=== PATIENT | female | born 1945 | race African-American/Black ===

== ENCOUNTER 2018-05-24 19:55 | Inpatient (IN) | payer MEDICARE, MEDICAID ==
[~2018-05-24] VITALS: Ht 162.6 cm; Wt 63.5 kg
[~2018-05-24 19:55] MED LIST: AMLO5TAB4 PO; GLYB5TAB4 PO; HYDR-1348
[2018-05-24] MEDS ORDERED: ONDANSETRON HCL 4MG/2ML INJ IV STA (20:30)
[2018-05-24] MEDS ORDERED: MORPHINE SULFATE 4 MG/ML CPJ (NOT FOR IM USE) IV STA (20:30)
[2018-05-24] MEDS ORDERED: SODIUM CHLORIDE 0.9% 1,000 ML IV ONE (20:30)
[2018-05-24] MEDS ORDERED: KETOROLAC 30MG/ML VIAL IV STA (20:30)
[2018-05-24 22:15] LABS: EOSINOPHILS % 0.6 % (0.0-5.0); HEMATOCRIT. 35.1 % (36.0-48.0); HEMOGLOBIN. 11.9 g/dL (12.0-16.0); LYMPHOCYTES % 39.4 % (20.0-50.0); MEAN CORPUSCULAR HEMOGLOBIN 30.6 pg (28.0-32.0); MEAN CORPUSCULAR VOLUME 90.4 fL (81.0-99.0); MEAN PLATELET VOLUME 8.4 fl (7.4-10.4); MONOCYTES % 5.6 % (2.0-8.0); NEUTROPHILS % 53.4 % (40.0-76.0); PLATELET 242 x1000/uL (130-400); RED BLOOD CELL COUNT 3.88 mill/uL (4.2-5.4)
[2018-05-24 22:21] LABS: CLARITY URINE CLEAR (CLEAR); COLOR URINE YELLOW (YELLOW); KETONES URINE NEGATIVE (NEGATIVE); LEUKOCYTE ESTERASE URINE NEGATIVE (NEGATIVE); NITRITE URINE NEGATIVE (NEGATIVE); OCCULT BLOOD URINE 2+ (NEGATIVE); PROTEIN URINE TRACE (NEGATIVE); SPECIFIC GRAVITY URINE 1.008 (1.005-1.030); UROBILINOGEN URINE 0.2 E.U./dL (0.2-1.0)
[2018-05-24 22:22] LABS: CHLORIDE 106 mEq/L (98-107)
[2018-05-24 22:25] LABS: ETHANOL BLOOD < 10 mg/dL
[2018-05-24 22:26] LABS: PARTIAL THROMBOPLASTIN TIME 31.5 sec (23.4-31.0); PROTHROMBIN TIME 10.3 sec (9.1-11.1)
[2018-05-24 22:30] LABS: *AMPHETAMINES SCREEN URINE NEGATIVE (NEGATIVE); *BARBITURATES SCREEN URINE NEGATIVE (NEGATIVE)
[2018-05-24 22:31] LABS: *BENZODIAZEPINES SCREEN URINE NEGATIVE (NEGATIVE); *COCAINE SCREEN URINE NEGATIVE (NEGATIVE); CANNABINOID URINE SCREEN NEGATIVE (NEGATIVE); METHADONE URINE SCREEN NEGATIVE (NEGATIVE); OPIATES URINE SCREEN PRESUMTIVE POSITIVE (NEGATIVE); PHENCYCLIDINE URINE SCREEN NEGATIVE (NEGATIVE)
[2018-05-24] MEDS ORDERED: GUAIFENESIN 200MG/10ML SUGAR FREE UDC PO PRN (23:45)
[2018-05-24] MEDS ORDERED: DOCUSATE SODIUM 100MG CAPSULE PO PRN (23:45)
[2018-05-24] MEDS ORDERED: MAGNESIUM/ALUMINUM HYDROXIDE/SIMETHICONE 30ML UDC PO PRN (23:45)
[2018-05-24] MEDS ORDERED: ACETAMINOPHEN 325MG TABLET PO PRN (23:45)
[2018-05-24] MEDS ORDERED: CLONIDINE 0.1MG TABLET PO PRN (23:45)
[2018-05-24] MEDS ORDERED: ONDANSETRON HCL 4MG/2ML INJ IV PRN (23:45)
[2018-05-24 23:56] VITALS: BP 144/83
[2018-05-25] VITALS: BP 144/83
[2018-05-25] MEDS: DEXT 5%/0.45% NACL 1000ML 1,000 ML IV SCH ×3 (01:06→14:19)
[2018-05-25] MEDS: HYDROCODONE/ACETAMINOPHEN 5/325MG TABLET PO PRN ×4 (01:07→16:27)
[2018-05-25] MEDS ORDERED: GABA-290 PO (01:41)
[2018-05-25] MEDS ORDERED: ATOR10TA69 PO (01:41)
[2018-05-25] MEDS ORDERED: HYDR12.529 PO (01:41)
[2018-05-25 04:00] VITALS: BP 139/67
[2018-05-25 07:46] LABS: CHLORIDE 109 mEq/L (98-107)
[2018-05-25 08:00] VITALS: BP 163/83
[2018-05-25 08:27] LABS: BASOPHILS % 0.6 % (0.0-2.0); EOSINOPHILS % 1.4 % (0.0-5.0); HEMATOCRIT. 31.3 % (36.0-48.0); HEMOGLOBIN. 10.5 g/dL (12.0-16.0); LYMPHOCYTES % 55.6 % (20.0-50.0); MEAN CORPUSCULAR HEMOGLOBIN 30.7 pg (28.0-32.0); MEAN CORPUSCULAR VOLUME 91.1 fL (81.0-99.0); MEAN PLATELET VOLUME 8.8 fl (7.4-10.4); MONOCYTES % 6.6 % (2.0-8.0); NEUTROPHILS % 35.8 % (40.0-76.0); PLATELET 219 x1000/uL (130-400); RED BLOOD CELL COUNT 3.44 mill/uL (4.2-5.4); RED CELL DISTRIBUTION WIDTH 14.7 % (11.6-14.6)
[2018-05-25] MEDS ORDERED: METOPROLOL TARTRATE 25MG TABLET PO SCH (09:00)
[2018-05-25] MEDS ORDERED: ENOXAPARIN 40MG/0.4ML SYR SUBCUT SCH (09:00)
[2018-05-25 12:00] VITALS: BP 158/76
[2018-05-25] MEDS ORDERED: DEXTROSE 50% WATER 50ML SYRINGE IV PRN (14:15)
[2018-05-25 16:00] VITALS: BP 170/70
[2018-05-25] MEDS ORDERED: BLOOD SUGAR DIAGNOSTIC STRIP TEST SCH (17:40)
[2018-05-25] MEDS ORDERED: GLYBURIDE 5MG TABLET PO SCH (17:40)
[2018-05-25 17:57] VITALS: BP 163/77
[2018-05-25] MEDS ORDERED: INSULIN LISPRO 100 UNITS/ML SUBCUT SCH (18:10)
== END 2018-05-25 18:33 | disposition home or self-care (01) | DRG 422 ==
LOC: ER 20:19 → 7WST 21:34 → EDBEDREQ 21:56 → EDBEDREQTM 21:56 → ENRESERV 22:31 → SUPCPDRO 23:40
PROVIDERS: ADMIT Hospitalist; ATTEND Hospitalist
DX: E86.0 Dehydration (principal); E11.9 Type 2 diabetes mellitus without complications; M06.9 Rheumatoid arthritis, unspecified; I10 Essential (primary) hypertension
CPT/HCPCS: 36415; 71045; 80305; 80320; 82962; 83605; 83880; 84484; 85651; 87804; 93005; 93970; 96361; 96374; 96375; 99285; J1650; J1885; J2270; J2405; J7030; G0480

== ENCOUNTER 2020-05-05 05:52 | Inpatient (IN) | payer MEDICARE, MEDICAID ==
[~2020-05-05] VITALS: Ht 162.6 cm; Wt 60.3 kg
[~2020-05-05 05:52] MED LIST changes: +ATOR10TA69 PO; +GABA-290 PO; +HYDR12.529 PO
[2020-05-05] MEDS ORDERED: SODIUM CHLORIDE 0.9% 1000ML BAG (SEPSIS BOLUS) IV ONE (06:15)
[2020-05-05 06:52] LABS: BASOPHILS % 1.1 % (0.0-2.0); EOSINOPHILS % 0.1 % (0.0-5.0); HEMOGLOBIN. 14.7 g/dL (12.0-16.0); LYMPHOCYTES % 28.8 % (20.0-50.0); MEAN CORPUSCULAR HEMOGLOBIN 31.5 pg (28.0-32.0); MEAN CORPUSCULAR VOLUME 91.9 fL (81.0-99.0); MEAN PLATELET VOLUME 8.5 fl (7.4-10.4); PLATELET 119 x1000/uL (130-400); RED BLOOD CELL COUNT 4.68 mill/uL (4.2-5.4); RED CELL DISTRIBUTION WIDTH 15.2 % (11.6-14.6)
[2020-05-05 06:53] LABS: CLARITY URINE CLOUDY (CLEAR); COLOR URINE DARK YELLOW (YELLOW); KETONES URINE TRACE (NEGATIVE); LEUKOCYTE ESTERASE URINE NEGATIVE (NEGATIVE); NITRITE URINE NEGATIVE (NEGATIVE); OCCULT BLOOD URINE 3+ (NEGATIVE); PH URINE 5.5 (4.5-8.0); PROTEIN URINE 4+ (NEGATIVE); SPECIFIC GRAVITY URINE 1.024 (1.005-1.030)
[2020-05-05 06:56] LABS: CHLORIDE 104 mEq/L (98-107)
[2020-05-05 06:57] LABS: INR 1.2; PROTHROMBIN TIME 12.3 sec (9.6-11.0)
[2020-05-05] MEDS ORDERED: ASPIRIN 325MG EC TABLET PO ONE (08:15)
[2020-05-05] MEDS: INSULIN LISPRO 100 UNITS/ML SUBCUT SCH ×4 (08:20→21:00)
[2020-05-05] MEDS ORDERED: DEXTROSE 50% WATER 50ML SYRINGE IV PRN ×2 (08:30)
[2020-05-05] MEDS ORDERED: ONDANSETRON HCL 4MG/2ML INJ IV PRN (08:30)
[2020-05-05] MEDS ORDERED: MAGNESIUM/ALUMINUM HYDROXIDE/SIMETHICONE 30ML UDC PO PRN (08:30)
[2020-05-05] MEDS ORDERED: DOCUSATE SODIUM 100MG CAPSULE PO PRN (08:30)
[2020-05-05] MEDS: ENOXAPARIN 40MG/0.4ML SYR SUBCUT SCH (09:00)
[2020-05-05] MEDS: OMEPRAZOLE 20MG CAPSULE EXTENDED RELEASE PO SCH (09:00)
[2020-05-05] MEDS: BLOOD SUGAR DIAGNOSTIC STRIP TEST SCH ×4 (09:27→21:17)
[2020-05-05] MEDS: CLONIDINE 0.1MG TABLET PO PRN (10:07)
[2020-05-05] MEDS: HYDROCODONE/ACETAMINOPHEN 5/325MG TABLET PO PRN ×3 (10:08→20:13)
[2020-05-05 20:52] LABS: *AMPHETAMINES SCREEN URINE NEGATIVE (NEGATIVE); *BARBITURATES SCREEN URINE NEGATIVE (NEGATIVE); *BENZODIAZEPINES SCREEN URINE NEGATIVE (NEGATIVE); *COCAINE SCREEN URINE NEGATIVE (NEGATIVE)
[2020-05-05 20:53] LABS: CANNABINOID URINE SCREEN NEGATIVE (NEGATIVE); METHADONE URINE SCREEN NEGATIVE (NEGATIVE); OPIATES URINE SCREEN PRESUMTIVE POSITIVE (NEGATIVE); PHENCYCLIDINE URINE SCREEN NEGATIVE (NEGATIVE)
[2020-05-05 22:10] VITALS: BP 159/83
[2020-05-05 23:21] VITALS: BP 159/83
[2020-05-06] VITALS: BP_SYST 141; BP_SYST 187; BP_DIAS 102; BP_DIAS 99
[2020-05-06] MEDS: CLONIDINE 0.1MG TABLET PO PRN ×2 (00:07→17:02)
[2020-05-06] MEDS: HYDROCODONE/ACETAMINOPHEN 5/325MG TABLET PO PRN ×2 (00:08→04:48)
[2020-05-06 04:00] VITALS: BP 162/89
[2020-05-06 04:42] LABS: EOSINOPHILS % 0.3 % (0.0-5.0); HEMATOCRIT. 39.9 % (36.0-48.0); HEMOGLOBIN. 13.7 g/dL (12.0-16.0); LYMPHOCYTES % 38.7 % (20.0-50.0); MEAN CORPUSCULAR HEMOGLOBIN 31.3 pg (28.0-32.0); MEAN PLATELET VOLUME 8.5 fl (7.4-10.4); MONOCYTES % 11.7 % (2.0-8.0); NEUTROPHILS % 48.3 % (40.0-76.0); PLATELET 115 x1000/uL (130-400); RED BLOOD CELL COUNT 4.38 mill/uL (4.2-5.4); RED CELL DISTRIBUTION WIDTH 15.2 % (11.6-14.6)
[2020-05-06 04:53] LABS: CHLORIDE 109 mEq/L (98-107)
[2020-05-06 05:00] LABS: PHOSPHORUS 2.7 mg/dL (2.5-4.9)
[2020-05-06 05:01] LABS: LDL CHOLESTEROL 150 mg/dL (5-100)
[2020-05-06 05:02] LABS: HDL CHOLESTEROL 46 mg/dL (40-59)
[2020-05-06] MEDS: OMEPRAZOLE 20MG CAPSULE EXTENDED RELEASE PO SCH (05:57)
[2020-05-06] MEDS: BLOOD SUGAR DIAGNOSTIC STRIP TEST SCH ×6 (05:57→20:38)
[2020-05-06] MEDS: INSULIN LISPRO 100 UNITS/ML SUBCUT SCH ×4 (05:58→20:38)
[2020-05-06] MEDS ORDERED: APIX5TAB PO (07:09)
[2020-05-06] MEDS ORDERED: GABA-290 PO (07:09)
[2020-05-06] MEDS ORDERED: LACT10SO3 PO (07:09)
[2020-05-06] MEDS ORDERED: AMLO10TA80 PO (07:09)
[2020-05-06] MEDS ORDERED: LOSA25TA26 PO (07:09)
[2020-05-06] MEDS ORDERED: LENV8CAP PO (07:09)
[2020-05-06] MEDS ORDERED: OXYC10TA48 PO (07:09)
[2020-05-06] MEDS ORDERED: FAMO40TA7 PO (07:09)
[2020-05-06] MEDS ORDERED: ATEN50TA PO (07:09)
[2020-05-06] MEDS ORDERED: METF-414 PO (07:09)
[2020-05-06 08:00] VITALS: BP 140/102
[2020-05-06] MEDS ORDERED: OXYCODONE HCL 10 MG PO SCH (08:30)
[2020-05-06] MEDS: ENOXAPARIN 40MG/0.4ML SYR SUBCUT SCH (09:18)
[2020-05-06] MEDS: OXYCODONE HCL 5MG TABLET PO SCH ×4 (09:19→20:38)
[2020-05-06 12:00] VITALS: BP 122/89
[2020-05-06 16:00] VITALS: BP 164/98
[2020-05-06] MEDS: DOCUSATE SODIUM 100MG CAPSULE PO SCH (17:02)
[2020-05-06] MEDS ORDERED: IOHEXOL-300 100 ML BOTTLE ONE (18:15)
[2020-05-06] MEDS: AMLODIPINE 5MG TABLET PO SCH (20:37)
[2020-05-07] MEDS: CLONIDINE 0.1MG TABLET PO PRN (00:32)
[2020-05-07] MEDS: OMEPRAZOLE 20MG CAPSULE EXTENDED RELEASE PO SCH (06:02)
[2020-05-07] MEDS: INSULIN LISPRO 100 UNITS/ML SUBCUT SCH ×4 (06:02→21:00)
[2020-05-07] MEDS: BLOOD SUGAR DIAGNOSTIC STRIP TEST SCH ×4 (06:02→21:19)
[2020-05-07 06:03] LABS: BASOPHILS % 0.8 % (0.0-2.0); EOSINOPHILS % 0.1 % (0.0-5.0); HEMATOCRIT. 39.5 % (36.0-48.0); HEMOGLOBIN. 13.4 g/dL (12.0-16.0); LYMPHOCYTES % 31.4 % (20.0-50.0); MEAN CORPUSCULAR HEMOGLOBIN 31.1 pg (28.0-32.0); MEAN CORPUSCULAR VOLUME 91.2 fL (81.0-99.0); MEAN PLATELET VOLUME 8.5 fl (7.4-10.4); MONOCYTES % 12.1 % (2.0-8.0); NEUTROPHILS % 55.6 % (40.0-76.0); PLATELET 126 x1000/uL (130-400); RED BLOOD CELL COUNT 4.33 mill/uL (4.2-5.4); RED CELL DISTRIBUTION WIDTH 15.7 % (11.6-14.6)
[2020-05-07 06:39] LABS: HEPATITIS B SURFACE ANTIGEN NEGATIVE
[2020-05-07 07:09] LABS: HEPATITIS A AB IGM NEGATIVE (NEGATIVE)
[2020-05-07 07:13] LABS: CHLORIDE 106 mEq/L (98-107)
[2020-05-07 08:00] VITALS: BP 149/87
[2020-05-07] MEDS: ENOXAPARIN 40MG/0.4ML SYR SUBCUT SCH (08:51)
[2020-05-07] MEDS: OXYCODONE HCL 5MG TABLET PO SCH ×4 (08:52→21:19)
[2020-05-07] MEDS: AMLODIPINE 5MG TABLET PO SCH ×2 (08:52→21:17)
[2020-05-07] MEDS: DOCUSATE SODIUM 100MG CAPSULE PO SCH ×2 (08:52→16:53)
[2020-05-07] MEDS: HYDROCODONE/ACETAMINOPHEN 5/325MG TABLET PO PRN (11:18)
[2020-05-07 12:00] VITALS: BP 134/77
[2020-05-07 16:00] VITALS: BP 135/73
[2020-05-07 20:00] VITALS: BP 146/61
[2020-05-08] VITALS: BP 145/79
[2020-05-08 06:02] LABS: BASOPHILS % 0.6 % (0.0-2.0); EOSINOPHILS % 0.3 % (0.0-5.0); HEMATOCRIT. 39.5 % (36.0-48.0); HEMOGLOBIN. 13.2 g/dL (12.0-16.0); LYMPHOCYTES % 30.9 % (20.0-50.0); MEAN CORPUSCULAR HEMOGLOBIN 30.9 pg (28.0-32.0); MEAN CORPUSCULAR VOLUME 92.4 fL (81.0-99.0); MEAN PLATELET VOLUME 8.5 fl (7.4-10.4); MONOCYTES % 11.5 % (2.0-8.0); NEUTROPHILS % 56.7 % (40.0-76.0); PLATELET 134 x1000/uL (130-400); RED BLOOD CELL COUNT 4.27 mill/uL (4.2-5.4); RED CELL DISTRIBUTION WIDTH 15.6 % (11.6-14.6)
[2020-05-08] MEDS: BLOOD SUGAR DIAGNOSTIC STRIP TEST SCH ×4 (06:08→21:29)
[2020-05-08] MEDS: OMEPRAZOLE 20MG CAPSULE EXTENDED RELEASE PO SCH (06:08)
[2020-05-08] MEDS: INSULIN LISPRO 100 UNITS/ML SUBCUT SCH ×4 (06:09→21:00)
[2020-05-08 06:44] LABS: CHLORIDE 108 mEq/L (98-107)
[2020-05-08 08:00] VITALS: BP 117/78
[2020-05-08] MEDS: ENOXAPARIN 40MG/0.4ML SYR SUBCUT SCH (08:24)
[2020-05-08] MEDS: AMLODIPINE 5MG TABLET PO SCH ×2 (08:24→21:30)
[2020-05-08] MEDS: DOCUSATE SODIUM 100MG CAPSULE PO SCH ×2 (08:24→16:54)
[2020-05-08] MEDS: OXYCODONE HCL 5MG TABLET PO SCH ×4 (08:24→21:30)
[2020-05-08 12:00] VITALS: BP 126/71
[2020-05-08 16:00] VITALS: BP 138/55
[2020-05-08 20:00] VITALS: BP 178/95
[2020-05-09] VITALS: BP 138/84
[2020-05-09 04:00] VITALS: BP 139/74
[2020-05-09 04:24] LABS: BASOPHILS % 0.8 % (0.0-2.0); EOSINOPHILS % 0.1 % (0.0-5.0); HEMATOCRIT. 39.6 % (36.0-48.0); HEMOGLOBIN. 13.3 g/dL (12.0-16.0); LYMPHOCYTES % 32.6 % (20.0-50.0); MEAN CORPUSCULAR HEMOGLOBIN 30.9 pg (28.0-32.0); MEAN CORPUSCULAR VOLUME 92.4 fL (81.0-99.0); MEAN PLATELET VOLUME 8.7 fl (7.4-10.4); MONOCYTES % 11.8 % (2.0-8.0); NEUTROPHILS % 54.7 % (40.0-76.0); PLATELET 140 x1000/uL (130-400); RED BLOOD CELL COUNT 4.29 mill/uL (4.2-5.4); RED CELL DISTRIBUTION WIDTH 15.4 % (11.6-14.6)
[2020-05-09 04:28] LABS: CHLORIDE 108 mEq/L (98-107)
[2020-05-09] MEDS: INSULIN LISPRO 100 UNITS/ML SUBCUT SCH ×4 (05:20→20:56)
[2020-05-09] MEDS: BLOOD SUGAR DIAGNOSTIC STRIP TEST SCH ×4 (05:20→20:56)
[2020-05-09] MEDS: OMEPRAZOLE 20MG CAPSULE EXTENDED RELEASE PO SCH (06:10)
[2020-05-09 08:00] VITALS: BP 151/91
[2020-05-09] MEDS: AMLODIPINE 5MG TABLET PO SCH ×2 (08:49→20:55)
[2020-05-09] MEDS: DOCUSATE SODIUM 100MG CAPSULE PO SCH ×2 (08:49→17:09)
[2020-05-09] MEDS: ENOXAPARIN 40MG/0.4ML SYR SUBCUT SCH (08:49)
[2020-05-09] MEDS: OXYCODONE HCL 5MG TABLET PO SCH ×4 (08:50→20:56)
[2020-05-09] MEDS ORDERED: POTASSIUM CHLORIDE 20MEQ TABLET SR PO NR (09:45)
[2020-05-09 12:00] VITALS: BP 137/88
[2020-05-09 16:00] VITALS: BP 128/72
[2020-05-09 20:00] VITALS: BP 131/86
[2020-05-10] VITALS: BP 154/94
[2020-05-10] MEDS: CLONIDINE 0.1MG TABLET PO PRN (01:37)
[2020-05-10 04:00] VITALS: BP 121/65
[2020-05-10] MEDS: INSULIN LISPRO 100 UNITS/ML SUBCUT SCH ×4 (05:15→20:36)
[2020-05-10] MEDS: BLOOD SUGAR DIAGNOSTIC STRIP TEST SCH ×4 (05:15→20:36)
[2020-05-10 08:00] VITALS: BP 131/75
[2020-05-10] MEDS: DOCUSATE SODIUM 100MG CAPSULE PO SCH ×2 (08:49→16:46)
[2020-05-10] MEDS: FAMOTIDINE 20MG TABLET PO SCH (08:49)
[2020-05-10] MEDS: AMLODIPINE 5MG TABLET PO SCH ×2 (08:49→20:35)
[2020-05-10] MEDS: ENOXAPARIN 40MG/0.4ML SYR SUBCUT SCH (08:49)
[2020-05-10] MEDS: OXYCODONE HCL 5MG TABLET PO SCH ×4 (08:50→20:35)
[2020-05-10 12:00] VITALS: BP 112/66
[2020-05-10 16:00] VITALS: BP 110/60
[2020-05-10] MEDS: METFORMIN HCL 500MG TABLET PO SCH (16:46)
[2020-05-10] MEDS: APIXABAN 5 MG TABLET PO SCH (16:46)
[2020-05-10 20:00] VITALS: BP_SYST 138; BP_SYST 184; BP_DIAS 69; BP_DIAS 90
[2020-05-10] MEDS: LENVATINIB PO SCH (20:36)
[2020-05-11] VITALS: BP 142/81
[2020-05-11 04:00] VITALS: BP 149/85
[2020-05-11] MEDS: BLOOD SUGAR DIAGNOSTIC STRIP TEST SCH ×4 (06:38→20:53)
[2020-05-11] MEDS: INSULIN LISPRO 100 UNITS/ML SUBCUT SCH ×2 (06:38→11:57)
[2020-05-11 08:00] VITALS: BP 138/87
[2020-05-11] MEDS: FAMOTIDINE 20MG TABLET PO SCH (08:05)
[2020-05-11] MEDS: DOCUSATE SODIUM 100MG CAPSULE PO SCH ×2 (08:05→17:08)
[2020-05-11] MEDS: METFORMIN HCL 500MG TABLET PO SCH ×2 (08:05→17:08)
[2020-05-11] MEDS: AMLODIPINE 5MG TABLET PO SCH ×2 (08:06→20:36)
[2020-05-11] MEDS: OXYCODONE HCL 5MG TABLET PO SCH ×4 (08:06→20:37)
[2020-05-11] MEDS: APIXABAN 5 MG TABLET PO SCH ×2 (08:06→17:08)
[2020-05-11] MEDS ORDERED: LACTULOSE 20G/30ML UDC PO NR (11:45)
[2020-05-11 12:00] VITALS: BP 152/83
[2020-05-11] MEDS ORDERED: OXYCODONE HCL 5MG TABLET PO SCH (13:00)
[2020-05-11] MEDS ORDERED: HYDR2TAB4 PO (13:17)
[2020-05-11] MEDS ORDERED: HYDR-4350 MT (13:19)
[2020-05-11] MEDS ORDERED: DOCU250C14 MT (13:19)
[2020-05-11 16:00] VITALS: BP 155/81
[2020-05-11 20:00] VITALS: BP 153/86
[2020-05-11] MEDS: LENVATINIB PO SCH (20:26)
[2020-05-12] VITALS: BP 110/77
[2020-05-12 04:00] VITALS: BP 124/73
[2020-05-12] MEDS: BLOOD SUGAR DIAGNOSTIC STRIP TEST SCH ×2 (06:56→12:31)
[2020-05-12 08:00] VITALS: BP 160/90
[2020-05-12] MEDS: AMLODIPINE 5MG TABLET PO SCH ×2 (09:11→20:04)
[2020-05-12] MEDS: FAMOTIDINE 20MG TABLET PO SCH (09:11)
[2020-05-12] MEDS: APIXABAN 5 MG TABLET PO SCH ×2 (09:11→17:43)
[2020-05-12] MEDS: OXYCODONE HCL 5MG TABLET PO SCH ×4 (09:11→20:05)
[2020-05-12] MEDS: DOCUSATE SODIUM 100MG CAPSULE PO SCH ×2 (09:11→17:00)
[2020-05-12] MEDS: METFORMIN HCL 500MG TABLET PO SCH ×2 (09:12→17:43)
[2020-05-12] MEDS: CLONIDINE 0.1MG TABLET PO PRN (09:17)
[2020-05-12 12:00] VITALS: BP 100/71
[2020-05-12 16:00] VITALS: BP 116/56
[2020-05-12 20:00] VITALS: BP 121/83
[2020-05-12] MEDS: LENVATINIB PO SCH (20:05)
[2020-05-13] VITALS: BP 147/88
[2020-05-13 04:00] VITALS: BP 163/88
[2020-05-13 08:00] VITALS: BP 133/77
[2020-05-13] MEDS: METFORMIN HCL 500MG TABLET PO SCH ×2 (08:10→17:28)
[2020-05-13] MEDS: OXYCODONE HCL 5MG TABLET PO SCH ×4 (08:14→21:04)
[2020-05-13] MEDS: APIXABAN 5 MG TABLET PO SCH ×2 (08:15→17:28)
[2020-05-13] MEDS: FAMOTIDINE 20MG TABLET PO SCH (08:15)
[2020-05-13] MEDS: AMLODIPINE 5MG TABLET PO SCH ×2 (08:15→21:04)
[2020-05-13] MEDS: DOCUSATE SODIUM 100MG CAPSULE PO SCH ×2 (08:15→17:00)
[2020-05-13 12:00] VITALS: BP 143/80
[2020-05-13 16:00] VITALS: BP 151/83
[2020-05-13 20:00] VITALS: BP 156/82
[2020-05-14] VITALS: BP 122/77
[2020-05-14 04:00] VITALS: BP_SYST 134; BP_SYST 138; BP_DIAS 76
[2020-05-14 08:00] VITALS: BP 138/78
[2020-05-14] MEDS: DOCUSATE SODIUM 100MG CAPSULE PO SCH ×2 (08:58→17:53)
[2020-05-14] MEDS: APIXABAN 5 MG TABLET PO SCH ×2 (08:58→17:53)
[2020-05-14] MEDS: METFORMIN HCL 500MG TABLET PO SCH ×2 (08:58→17:53)
[2020-05-14] MEDS: FAMOTIDINE 20MG TABLET PO SCH (08:58)
[2020-05-14] MEDS: AMLODIPINE 5MG TABLET PO SCH ×2 (08:58→21:01)
[2020-05-14] MEDS: OXYCODONE HCL 5MG TABLET PO SCH ×4 (08:58→21:02)
[2020-05-14 12:00] VITALS: BP 137/83
[2020-05-14 16:00] VITALS: BP 126/74
[2020-05-14 20:00] VITALS: BP 122/75
[2020-05-15 00:43] VITALS: BP 117/70
[2020-05-15 04:00] VITALS: BP 131/72
[2020-05-15 08:00] VITALS: BP 123/75
[2020-05-15] MEDS: METFORMIN HCL 500MG TABLET PO SCH ×2 (08:49→17:19)
[2020-05-15] MEDS: APIXABAN 5 MG TABLET PO SCH ×2 (08:49→17:19)
[2020-05-15] MEDS: DOCUSATE SODIUM 100MG CAPSULE PO SCH ×2 (08:49→17:19)
[2020-05-15] MEDS: FAMOTIDINE 20MG TABLET PO SCH (08:50)
[2020-05-15] MEDS: AMLODIPINE 5MG TABLET PO SCH ×2 (08:50→20:41)
[2020-05-15] MEDS: OXYCODONE HCL 5MG TABLET PO SCH ×4 (08:50→20:42)
[2020-05-15 12:00] VITALS: BP 122/67
[2020-05-15] MEDS ORDERED: LACTULOSE 20G/30ML UDC PO SCH (13:30)
[2020-05-15 16:00] VITALS: BP 148/104
[2020-05-15 20:00] VITALS: BP 164/84
[2020-05-15] MEDS: LENVATINIB PO SCH (20:43)
[2020-05-16] VITALS: BP 132/80
[2020-05-16 04:00] VITALS: BP 158/84
[2020-05-16 06:44] LABS: HEMATOCRIT 35.3 % (36.0-48.0); HEMOGLOBIN 11.9 g/dL (12.0-16.0); MEAN CORPUSCULAR HEMOGLOBIN 31.1 pg (28.0-32.0); MEAN CORPUSCULAR VOLUME 92.2 fL (81.0-99.0); PLATELET 198 x1000/uL (130-400); RED BLOOD CELL COUNT 3.82 mill/uL (4.2-5.4); RED CELL DISTRIBUTION WIDTH 15.4 % (11.6-14.6)
[2020-05-16 07:37] LABS: CHLORIDE 104 mEq/L (98-107)
[2020-05-16 08:00] VITALS: BP 138/90
[2020-05-16] MEDS: METFORMIN HCL 500MG TABLET PO SCH ×2 (08:34→16:43)
[2020-05-16] MEDS: FAMOTIDINE 20MG TABLET PO SCH (08:34)
[2020-05-16] MEDS: AMLODIPINE 5MG TABLET PO SCH ×2 (08:34→21:35)
[2020-05-16] MEDS: DOCUSATE SODIUM 100MG CAPSULE PO SCH ×2 (08:34→16:43)
[2020-05-16] MEDS: APIXABAN 5 MG TABLET PO SCH ×2 (08:34→16:43)
[2020-05-16] MEDS: OXYCODONE HCL 5MG TABLET PO SCH ×4 (08:35→21:35)
[2020-05-16 12:00] VITALS: BP 140/89
[2020-05-16 16:00] VITALS: BP 160/90
[2020-05-16 20:00] VITALS: BP 152/87
[2020-05-16] MEDS: LENVATINIB PO SCH (21:36)
[2020-05-17] VITALS: BP 138/80
== END 2020-05-17 00:12 | DRG 436 ==
LOC: ER 06:25 → 5WST 08:08 → EDBEDREQSVC 08:13 → EDBEDREQ 08:13 → ENRESERV 20:02
PROVIDERS: ADMIT Internal Medicine; ATTEND Internal Medicine
DX: C22.0 Liver cell carcinoma (principal); E44.0 Moderate protein-calorie malnutrition; I42.9 Cardiomyopathy, unspecified; B17.10 Acute hepatitis C without hepatic coma; E11.9 Type 2 diabetes mellitus without complications; E78.5 Hyperlipidemia, unspecified; E86.0 Dehydration; K80.20 Calculus of gallbladder without cholecystitis without obstruction; M19.90 Unspecified osteoarthritis, unspecified site; D63.0 Anemia in neoplastic disease; Z51.5 Encounter for palliative care; Z20.822 Contact with and (suspected) exposure to COVID-19; I25.10 Atherosclerotic heart disease of native coronary artery without angina pectoris; R41.0 Disorientation, unspecified; I11.9 Hypertensive heart disease without heart failure; J44.9 Chronic obstructive pulmonary disease, unspecified; K74.60 Unspecified cirrhosis of liver; M06.9 Rheumatoid arthritis, unspecified; N28.1 Cyst of kidney, acquired; Z83.3 Family history of diabetes mellitus; Z92.21 Personal history of antineoplastic chemotherapy; Z68.22 Body mass index [BMI] 22.0-22.9, adult; Z79.899 Other long term (current) drug therapy; K86.89 Other specified diseases of pancreas; K83.8 Other specified diseases of biliary tract
CPT/HCPCS: 36415; 71045; 71270; 74178; 76705; 76770; 80048; 80053; 80061; 80076; 80305; 81003; 82140; 82248; 82962; 83036; 83605; 83735; 84100; 84145; 84439; 84443; 84484; 85025; 85027; 86705; 86709; 86803; 87340; 87426; 93005; 93306; 93970; 97110; 97116; 97162; 97166; 97530; 97535; 99285; C1893; J1650; J7030; Q9967